=== PATIENT | female | born 1970 | race African-American/Black ===

== ENCOUNTER 2017-02-17 18:02 | Emergency (ER) | payer SELFPAY ==
[~2017-02-17 18:02] MED LIST: HYDR25T PO; PREVACID30 M2 PO
[2017-02-17] MEDS ORDERED: LOPRESSOR50 M1 PO (18:16)
[2017-02-17] MEDS ORDERED: IBU800 MG PO (18:17)
[2017-02-17 18:31] LABS: HEMATOCRIT 33.8 % (37.0-47.0); HEMOGLOBIN 11.4 g/dl (12.0-16.0); MEAN CELL VOLUME 85.4 fl (81.0-99.0); MEAN CORPUSCULAR HGB 28.8 pg (27.0-31.0); MEAN CORPUSCULAR HGB CONC 33.7 g/dl (33.0-37.0); MEAN PLATELET VOLUME 9.6 fl (9.6-12.3); PLATELET COUNT AUTOMATED 182 10*3/uL (130-400); RED BLOOD COUNT 3.96 10*6/uL (4.10-5.10); WHITE BLOOD COUNT 4.3 10*3/uL (4.8-10.8)
[2017-02-17 18:43] LABS: BILIRUBIN NEGATIVE (NEGATIVE); BLOOD 3+ (NEGATIVE); CLARITY CLOUDY (CLEAR); COLOR RED (YELLOW); GLUCOSE NEGATIVE (NEGATIVE); KETONE NEGATIVE (NEGATIVE); NITRITE NEGATIVE (NEGATIVE); PH 5.5 (5.0-9.0); PROTEIN 2+ (NEGATIVE); UROBILINOGEN 0.2 E.U./dl (0.2-1.0)
[2017-02-17 18:48] LABS: ALBUMIN 3.4 gm/dl (3.1-4.5); ALKALINE PHOSPHATASE 73 U/L (45-117); BILIRUBIN, TOTAL 0.4 mg/dl (0.2-1.0); BUN 5 mg/dl (7-24); CARBON DIOXIDE 25 mmol/L (21-32); CHLORIDE 108 mmol/L (98-107); EST GLOM FILT AFRICAN AMERICAN > 60 ml/min; GLUCOSE 97 mg/dL (65-99); POTASSIUM 3.3 mmol/L (3.5-5.1); SGOT/AST 17 IU/L (3-35); SGPT/ALT 15 U/L (12-78); SODIUM 139 mmol/L (136-145); TOTAL PROTEIN 7.4 gm/dL (6.4-8.2)
[2017-02-17 18:52] LABS: LYMPHOCYTE # 0.3 10*3/uL (1.3-4.4); NEUTROPHILS 93 % (47-73); PLATELET SUFFICIENCY NORMAL (NORMAL); TOTAL CELLS COUNTED 100 #CELLS
[2017-02-17 18:52] LABS: LEUKO ESTERASE TRACE (NEGATIVE); RBC TNTC rbc/hpf (0-2); URINE REFLEX COMMENT YES (NO)
[2017-02-17] MEDS ORDERED: MACROBID100 M1 PO (19:06)
== END 2017-02-17 19:10 | disposition home or self-care (01) ==
LOC: ED 18:02
PROVIDERS: Registered Nurse
DX: N30.01 Acute cystitis with hematuria (principal); Z88.1 Allergy status to other antibiotic agents; Z88.2 Allergy status to sulfonamides; Z79.899 Other long term (current) drug therapy

== ENCOUNTER 2018-03-28 18:04 | Emergency (ER) | payer OTHER ==
[~2018-03-28] VITALS: Ht 165.1 cm; Wt 106.6 kg
[~2018-03-28 18:04] MED LIST changes: +IBU800 MG PO; +LOPRESSOR50 M1 PO; +MACROBID100 M1 PO
[2018-03-28 19:09] LABS: BASO % 0.3 % (0.0-1.0); EOS # 0.2 10*3/uL (0.0-0.4); EOS % 2.4 % (1.0-4.0); HEMATOCRIT 35.2 % (37.0-47.0); HEMOGLOBIN 11.7 g/dl (12.0-16.0); LYMPH # 1.2 10*3/uL (1.3-4.4); LYMPH % 15.1 % (27.0-41.0); MEAN CELL VOLUME 87.6 fl (81.0-99.0); MEAN CORPUSCULAR HGB 29.1 pg (27.0-31.0); MEAN CORPUSCULAR HGB CONC 33.2 g/dl (33.0-37.0); MEAN PLATELET VOLUME 10.8 fl (9.6-12.3); MONO # 0.9 10*3/uL (0.1-1.0); MONO % 11.3 % (3.0-9.0); NEUT # 5.5 10*3/uL (2.3-7.9); NEUT % 70.5 % (47.0-73.0); PLATELET COUNT AUTOMATED 227 10*3/uL (130-400); RED BLOOD COUNT 4.02 10*6/uL (4.10-5.10); RED CELL DISTRI WIDTH 13.6 % (0-14.5); WHITE BLOOD COUNT 7.8 10*3/uL (4.8-10.8)
[2018-03-28 19:20] LABS: BUN 16 mg/dl (7-24); CHLORIDE 108 mmol/L (98-107); CREATININE 0.93 mg/dL (0.55-1.02); POTASSIUM 3.7 mmol/L (3.5-5.1); SODIUM 141 mmol/L (136-145)
[2018-03-28] MEDS ORDERED: MEDROL DOSEPAK4 MG PO (21:46)
[2018-03-28] MEDS ORDERED: CYCLOBENZAPRINE10 MG PO (21:46)
[2018-03-28] MEDS ORDERED: Motrin,Rufen800 MG PO (21:46)
== END 2018-03-28 23:46 | disposition home or self-care (01) ==
LOC: ED 18:04
PROVIDERS: Nurse Practitioner Family
DX: M46.86 Other specified inflammatory spondylopathies, lumbar region (principal); M54.31 Sciatica, right side; I10 Essential (primary) hypertension; Z98.890 Other specified postprocedural states; Z79.899 Other long term (current) drug therapy; Z88.1 Allergy status to other antibiotic agents; Z88.8 Allergy status to other drugs, medicaments and biological substances

== ENCOUNTER → 2018-05-17 | Outpatient (CLI) | payer OTHER ==
[~2018-05-17] MED LIST changes: +CYCLOBENZAPRINE10 MG PO; +MEDROL DOSEPAK4 MG PO; +Motrin,Rufen800 MG PO
== END | disposition home or self-care (01) ==
LOC: MRI 13:59
DX: M54.41 Lumbago with sciatica, right side (principal)